=== PATIENT | male | born 1980 | race Caucasian/White ===

== ENCOUNTER 2017-08-08 11:34 | Inpatient (IN) | payer OTHER ==
[~2017-08-08 11:34] MED LIST: LIDOCAINE 2% INJ 100 MG/5 ML SDV (FOR ANES.) As Ordered; MIDAZOLAM INJ 2 MG/2 ML VIAL (J2250) As Ordered; ONDANSETRON 4MG/2ML VIAL (J2405) As Ordered; PROPOFOL 200 MG/20 ML VIAL As Ordered; ROCURONIUM BROMIDE 50 MG/5 ML VIAL As Ordered; dexameTHASONE 4 MG/ML 1ML VIAL (J1100) As Ordered; fentaNYL 250 MCG/5 ML INJECTION (J3010) As Ordered
[2017-08-08] MEDS: LR 1,000 ML IV ×2 (12:00→18:24)
[2017-08-08] MEDS: PERCOCET 5MG/325MG TAB PO ×2 (12:14→20:44)
[2017-08-08] MEDS ORDERED: PERCOCET 5MG/325MG TAB PO ×3 (12:15→19:00)
[2017-08-08] MEDS: ceFAZolin 2 GM/D5W 50 ML IV BAG (J0690 PER 500MG) As Ordered (16:08)
[2017-08-08] MEDS ORDERED: NEOSTIGMINE 10 MG/10 ML VIAL (J2710) As Ordered (16:39)
[2017-08-08] MEDS ORDERED: GLYCOPYRROLATE INJ 0.2 MG/ML 2 ML VIAL As Ordered (16:39)
[2017-08-08] MEDS ORDERED: ePHEDrine SULFATE 25 MG/5 ML(5MG/ML) SYRINGE As Ordered (16:39)
[2017-08-08] MEDS ORDERED: HYDROmorphone HCL 2 MG/ML 1ML VIAL (J1170) As Ordered (16:39)
[2017-08-08] MEDS: BACITRACIN PWD 50,000 UNITS VIAL As Ordered (17:06)
[2017-08-08] MEDS: THROMBIN SOLN 20,000 UNITS KIT As Ordered (17:06)
[2017-08-08] MEDS: BUPIVACAINE/EPIN 0.5% 30 ML VIAL As Ordered (17:08)
[2017-08-08] MEDS: LIDOCAINE W/EPINEPHRINE 1% 20ML VIAL As Ordered (17:08)
[2017-08-08] MEDS: VANCOMYCIN HCL 500 MG/10 ML VIAL (J3370) As Ordered (17:09)
[2017-08-08] MEDS ORDERED: ROCURONIUM BROMIDE 50 MG/5 ML VIAL As Ordered (17:17)
[2017-08-08] MEDS: BUPIVACAINE LIPOSOME/PF 1.3% 20 ML VIAL (13.3MG/ML)(EXPAREL) As Ordered (17:54)
[2017-08-08] MEDS: BUPIVACAINE HCL 0.5% 30 ML VIAL As Ordered (17:54)
[2017-08-08] MEDS ORDERED: fentaNYL 100 MCG/2 ML INJECTION (J3010) IV (18:45)
[2017-08-08] MEDS ORDERED: HYDROMORPHONE HCL 0.5 MG/ 0.5 ML SYRINGE (J1170 PER 1) IV ×2 (19:00)
[2017-08-08] MEDS: ONDANSETRON 4MG/2ML VIAL (J2405) IV (19:00)
[2017-08-08] MEDS ORDERED: ACETAMINOPHEN TAB 650MG DOSE (2X325MG) PO (19:00)
[2017-08-08] MEDS: D5W/LR 1,000 ML IV (19:50)
[2017-08-09] MEDS: PERCOCET 5MG/325MG TAB PO ×3 (01:00→11:55)
[2017-08-09] MEDS: PROMETHAZINE INJ 25 MG/ML VIAL (J2550) IV (01:53)
[2017-08-09] MEDS: D5W/LR 1,000 ML IV (05:00)
[2017-08-09] MEDS: METAMUCIL (PSYLLIUM) PACKET PO (09:00)
[2017-08-09] MEDS: MOM 30ML SUSPENSION UDC PO (09:00)
== END 2017-08-09 12:30 | disposition home or self-care (01) | DRG 460 ==
LOC: M OR 11:34 → M MS5PR 19:26
PROC: 0SG3071 Fusion of Lumbosacral Joint with Autologous Tissue Substitute, Posterior Approach, Posterior Column, Open Approach (ICD-10-PCS; principal; 2017-08-08 13:50)
PROC: 0QB20ZZ Excision of Right Pelvic Bone, Open Approach (ICD-10-PCS; 2017-08-08 13:50)
DX: M43.17 Spondylolisthesis, lumbosacral region (principal); M43.16 Spondylolisthesis, lumbar region; Z98.52 Vasectomy status